=== PATIENT | male | born 1980 | race Caucasian/White ===

== ENCOUNTER 2017-06-08 13:35 | Emergency (ER) | payer SELFPAY ==
[~2017-06-08] VITALS: Ht 182.9 cm; Wt 125.0 kg
[~2017-06-08 13:35] MED LIST: NOHOMEMEDS
[2017-06-08 14:24] LABS: HEMATOCRIT 41.3 % (38.0-50.0); MCH 28.1 PG (29.0-34.0); MCHC 33.2 G/DL (30.0-36.0); MCV 84.8 FL (86-99); MEAN PLAT.VOLUME 9.4 uM^3 (9.0-12.4); PLATELET COUNT 389 K/uL (156-360); RBC DIS.WIDTH-CV 13.5 % (11.8-14.6); RBC DIS.WIDTH-SD 41.9 % (39-53); RED BLOOD COUNT 4.87 M/uL (4.00-5.50); WHITE BLOOD COUNT 11.7 K/uL (4.1-10.2)
[2017-06-08 14:32] LABS: CHLORIDE 103 mEq/L (99-109); SODIUM 138 mEq/L (136-147)
[2017-06-08 14:35] LABS: GLUCOSE 103 mg/dL (70-99)
[2017-06-08 14:36] LABS: ANION GAP 11 MEQ/L (2-14)
[2017-06-08 14:37] LABS: TOTAL BILIRUBIN 0.5 mg/dL (0.0-1.0)
[2017-06-08 14:38] LABS: ALKALINE PHOSPHATASE 142 IU/L (3-129); GFR ESTIMATE (CALCULATED) > 59 mL/min/ (58.99-99999)
[2017-06-08 14:39] LABS: UREA NITROGEN (BUN) 12 mg/dL (9-23)
[2017-06-08 15:34] LABS: ADD MIUA? YES; BILIRUBIN NEGATIVE; BLOOD SMALL; COLOR YELLOW ((YELLOW)); GLUCOSE (STRIP) NEGATIVE; KETONES NEGATIVE; LEUKOCYTES NEGATIVE; NITRITE NEGATIVE; PROTEIN (STRIP) NEGATIVE; SPECIFIC GRAVITY 1.017 (1.000-1.030); UROBILINOGEN 0.2 MG/DL (0.2-1.0)
[2017-06-08 15:40] LABS: BACTERIA NONE SEEN /HPF; EPITHELIAL CELLS NONE SEEN /HPF; MUCUS TRACE /LPF; RED BLOOD CELLS 0-5 /HPF (0-5); UCUL ADDED? NO; WHITE BLOOD CELLS 0-5 /HPF (0-5)
[2017-06-08] MEDS ORDERED: PERCOCET 5/31 TABLET PO (17:37)
[2017-06-08] MEDS ORDERED: MOTRIN600 MG PO (17:37)
[2017-06-08 17:47] VITALS: BP 117/60
== END 2017-06-08 17:49 | disposition home or self-care (01) ==
LOC: EME 13:35
DX: K42.9 Umbilical hernia without obstruction or gangrene (principal); F17.200 Nicotine dependence, unspecified, uncomplicated; Z88.6 Allergy status to analgesic agent; Z88.5 Allergy status to narcotic agent
CPT/HCPCS: 74177; 80053; 81003; 85027; 99281; 99284; J7040

== ENCOUNTER 2017-11-03 19:36 | Inpatient (IN) | payer SELFPAY ==
[~2017-11-03] VITALS: Ht 182.9 cm; Wt 123.1 kg
[~2017-11-03 19:36] MED LIST changes: +MOTRIN600 MG PO; +PERCOCET 5/31 TABLET PO
[2017-11-03 20:06] LABS: HEMATOCRIT 41.7 % (38.0-50.0); MCH 28.3 PG (29.0-34.0); MCHC 33.6 G/DL (30.0-36.0); MCV 84.2 FL (86-99); PLATELET COUNT 391 K/uL (156-360); RBC DIS.WIDTH-CV 13.6 % (11.8-14.6); RBC DIS.WIDTH-SD 41.5 % (39-53); RED BLOOD COUNT 4.95 M/uL (4.00-5.50); WHITE BLOOD COUNT 16.8 K/uL (4.1-10.2)
[2017-11-03 20:17] LABS: CHLORIDE 106 mEq/L (99-109); POTASSIUM 4.6 mEq/L (3.7-5.4); SODIUM 141 mEq/L (136-147)
[2017-11-03 20:18] LABS: GLUCOSE 99 mg/dL (70-99)
[2017-11-03 20:22] LABS: CREATININE 1.1 mg/dL (0.6-1.3); GFR ESTIMATE (CALCULATED) > 59 mL/min/ (58.99-99999)
[2017-11-03 20:23] LABS: UREA NITROGEN (BUN) 19 mg/dL (9-23)
[2017-11-03] MEDS ORDERED: ADVIL200 MG PO (22:24)
[2017-11-03] MEDS ORDERED: ONE DAILY MULT1 EACH PO (22:25)
[2017-11-04 00:34] VITALS: BP 130/60
[2017-11-04 06:09] LABS: BASOPHIL (%) 0.5 % (0-1); BASOPHIL COUNT 0.1 K/uL (0-0.1); EOSINOPHIL (%) 2.3 % (0-5); EOSINOPHIL COUNT 0.3 K/uL (0-0.3); HEMATOCRIT 40.4 % (38.0-50.0); HEMOGLOBIN 13.1 G/DL (12.5-16.6); IMMATURE GRANULOCYTE (%) 0.3 % (0.0-0.7); LYMPHOCYTE (%) 19.3 % (15-42); LYMPHOCYTE COUNT 2.9 K/uL (1.0-2.8); MCH 27.5 PG (29.0-34.0); MCHC 32.4 G/DL (30.0-36.0); MCV 84.7 FL (86-99); MONOCYTE (%) 11.8 % (3-12); MONOCYTE COUNT 1.7 K/uL (0-0.8); NEUTROPHIL (%) 65.8 % (45-76); NEUTROPHIL COUNT 9.7 K/uL (1.8-6.4); PLATELET COUNT 370 K/uL (156-360); RBC DIS.WIDTH-CV 13.6 % (11.8-14.6); RBC DIS.WIDTH-SD 42.1 % (39-53); RED BLOOD COUNT 4.77 M/uL (4.00-5.50); WHITE BLOOD COUNT 14.8 K/uL (4.1-10.2)
[2017-11-04 06:28] LABS: CHLORIDE 106 MEQ/L (99-109); CREATININE 1.1 MG/DL (0.6-1.3); GFR ESTIMATE (CALCULATED) > 59 mL/min/ (58.99-99999); GLUCOSE 94 mg/dL (70-99); POTASSIUM 4.2 MEQ/L (3.7-5.4); SODIUM 139 MEQ/L (136-147); UREA NITROGEN (BUN) 16 mg/dL (9-23)
[2017-11-04 07:15] VITALS: BP 120/67
[2017-11-04 16:23] VITALS: BP 140/75
[2017-11-04 22:44] VITALS: BP 132/74
[2017-11-05 06:41] VITALS: BP 133/63
[2017-11-05 15:15] VITALS: BP 135/82
== END 2017-11-05 15:58 | disposition left against medical advice (07) | DRG 603 ==
LOC: EME 19:36 → EDOF 22:41 → 5EAST 22:41 → ENRESERV 22:42 → 5EAST 11-04 00:10 → EDOF 11-04 00:10 → 5EAST 11-05 15:58
PROVIDERS: Hospitalist; Physician Assistant
DX: L03.213 Periorbital cellulitis (principal); H10.31 Unspecified acute conjunctivitis, right eye; H00.12 Chalazion right lower eyelid; J32.0 Chronic maxillary sinusitis; F17.200 Nicotine dependence, unspecified, uncomplicated
CPT/HCPCS: 70481; 80048; 80202; 83605; 85025; 85027; 87040; 99281; 99285; J0295; J2543; J3370; J7030; J7050